=== PATIENT | male | born 1985 | race African-American/Black ===

== ENCOUNTER 2020-09-10 10:19 | Emergency (ER) | payer SELFPAY ==
[~2020-09-10] VITALS: Ht 175.3 cm; Wt 86.1 kg
[~2020-09-10 10:19] MED LIST: CLIN300C3 PO; DEXA4TAB PO; IBUP800T19 PO; ONDA4TAB10 PO; PANT40TA3 PO; RANI-369 PO
[2020-09-10] MEDS ORDERED: IV NORMAL SALINE 1,000ML 1,000 ML IV ONE (11:00)
[2020-09-10] MEDS ORDERED: KETOROLAC 30 MG/ML VIAL. IVP ONE (11:00)
--- NOTE | 2020-09-10 11:07 | RAD ---
EXAMINATION: Chest radiograph. VIEWS: Single view COMPARISON: None INDICATION: Chest pain FINDINGS: Normal cardiomediastinal silhouette. No focal consolidation. Bilateral perihilar peribronchovascular cuffing. No pleural effusion or pneumothorax. No acute osseous process. IMPRESSION: Bilateral perihilar peribronchovascular cuffing, may reflect infectious/reactive small airways diseas e. No focal consolidation. Electronically signed by: Sammie Lee MD (09/10/2020 11:05 AM) [id number]
[2020-09-10 11:12] LABS: BASO # 0.1 x10^3/uL (0.0-0.2); BASO % 1 % (0-3); EOS # 0.1 x10^3/uL (0.0-0.7); EOS % 1 % (0-3); LYMPH # 1.4 x10^3/uL (1.0-4.8); LYMPH % 13 % (24-48); MEAN CORPUSCULAR HEMOGLOBIN 31 pg (25-35); MEAN CORPUSCULAR HGB CONC 33 g/dL (31-37); MEAN CORPUSCULAR VOLUME 94 fL (79-100); MONO # 0.9 x10^3/uL (0.0-1.1); MONO % 8 % (0-9); NEUT # 8.8 x10^3uL (1.8-7.7); NEUT % 78 % (31-73); PLATELET COUNT 179 x10^3/uL (140-400); RED BLOOD COUNT 4.17 x10^6/uL (4.30-5.70); RED CELL DISTRIBUTION WIDTH 14.3 % (11.5-14.5); WHITE BLOOD COUNT 11.3 x10^3/uL (4.0-11.0)
--- NOTE | 2020-09-10 11:12 | PHYS DOC ---
Past History Past Medical History: GERD, Hypertension, Other Past Surgical History: Cholecystectomy, Tonsillectomy Smoking: Non-smoker Alcohol Use: None Drug Use: Marijuana General Adult EDM: Chief Complaint: CHEST WALL PAIN HPI: HPI: 35-year-old male presents with chest pain. Patient states he was lifting a heavy object yesterday from his abdominal level up over his shoulder. He felt a popping sensation in the right trellis region. He had some pain with it. The patient has more pain today so he thought he should get evaluated. He still has full range of motion of his right arm and shoulder. The pain is worse with deep breathing and especially coughing or sneezing. He denies shortness of breath or diaphoresis. No fever or chills. Review of Systems: Review of Systems: Constitutional: Denies fever or chills Eyes: Denies change in visual acuity HENT: Denies nasal congestion or sore throat Respiratory: Denies cough or shortness of breath Cardiovascular: Denies chest pain or edema GI: Denies abdominal pain, nausea, vomiting, bloody stools or diarrhea : Denies dysuria Musculoskeletal: Right chest wall pain Integument: Denies rash Neurologic: Denies headache, focal weakness or sensory changes Endocrine: Denies polyuria or polydipsia Lymphatic: Denies swollen glands Psychiatric: Denies depression or anxiety Current Medications: Current Meds: Current Medications Medications (Trade) Dose Ordered Sig/Lars Start Time Stop Time Status Last Admin Dose Admin Ketorolac Tromethamine (Toradol 30mg Vial) 30 mg 1X ONCE 09/10/20 11:00 09/10/20 11:01 DC 09/10/20 11:00 30 MG Sodium Chloride 1,000 ml @ 1,000 mls/hr 1X ONCE 09/10/20 11:00 09/10/20 11:59 09/10/20 11:00 1,000 MLS/HR Allergies: Allergies: Allergies Coded Allergies Type Severity Reaction Last Updated Verified No Known Drug Allergies 05/27/13 No Physical Exam: PE: Constitutional: Well developed, well nourished, no acute distress, non-toxic appearance. [] HENT: Normocephalic, atraumatic, bilateral external ears normal, oropharynx moist, no oral exudates, nose normal. [] Eyes: PERRLA, EOMI, conjunctiva normal, no discharge. [] Neck: Normal range of motion, no tenderness, supple, no stridor. [] Cardiovascular:Heart rate regular rhythm, no murmur [] Lungs & Thorax: Bilateral breath sounds clear to auscultation. Tenderness to palpation of the right pectoralis region. No obvious muscle deformity. [] Abdomen: Bowel sounds normal, soft, no tenderness, no masses, no pulsatile masses. [] Skin: Warm, dry, no erythema, no rash. [] Back: No tenderness, no CVA tenderness. [] Extremities: No tenderness, no cyanosis, no clubbing, ROM intact, no edema. [] Neurologic: Alert and oriented X 3, normal motor function, normal sensory function, no focal deficits noted. [] Psychologic: Affect normal, judgement normal, mood normal. [] Current Patient Data: Vital Signs: Vital Signs Date Time Temp Pulse Resp B/P (MAP) Pulse Ox O2 Delivery O2 Flow Rate FiO2 09/10/20 10:30 97.8 59 16 128/66 (86) 98 Room Air EKG: EKG: Sinus rhythm, rate 61, normal axis, no ST elevation or depression. [] Radiology/Procedures: Radiology/Procedures: [] Impressions: EXAMINATION: Chest radiograph. VIEWS: Single view COMPARISON: None INDICATION: Chest pain FINDINGS: Normal cardiomediastinal silhouette. No focal consolidation. Bilateral perihilar peribronchovascular cuffing. No pleural effusion or pneumothorax. No acute osseous process. IMPRESSION: Bilateral perihilar peribronchovascular cuffing, may reflect infectious/reactive small airways disease. No focal consolidation. Electronically signed by: Sondra Lee MD (09/10/2020 11:05 AM) [id number] DICTATED AND SIGNED BY: SONDRA LEE MD DATE: 09/10/20 1104 CC: CHASITY KAPLAN DO; PCP,NO ~MTH0 0 Heart Score: C/O Chest Pain: Yes HEART Score for Chest Pain: HEART Score for Chest Pain Response (Comments) Value History Slighlty/Non-Suspicious 0 ECG Normal 0 Age < 45 0 Risk Factors No Risk Factors 0 Troponin < Normal Limit 0 Total 0 Risk Factors: Risk Factors: DM, Current or recent (<one month) smoker, HTN, HLP, family history of CAD, obesity. Risk Scores: Score 0 - 3: 2.5% MACE over next 6 weeks - Discharge Home Score 4 - 6: 20.3% MACE over next 6 weeks - Admit for Clinical Observation Score 7 - 10: 72.7% MACE over next 6 weeks - Early Invasive Strategies Course & Med Decision Making: Course & Med Decision Making Pertinent Labs and Imaging studies reviewed. (See chart for details) The patient's labs are unremarkable. His EKG is unremarkable. His chest x-ray shows some nonspecific findings. See official read for details. I believe this is just a musculoskeletal strain of the right pectoral region. It should improve on its own. The patient can continue to take ibuprofen as needed. He is stable for discharge at this time. [] Dragon Disclaimer: Dragon Disclaimer: This electronic medical record was generated, in whole or in part, using a voice recognition dictation system. Departure Departure: Impression: Primary Impression: Chest wall pain Disposition: HOME / SELF CARE / HOMELESS Condition: STABLE Referrals: PCP,KRISTIE (PCP) Patient Instructions: Chest Wall Pain, [id number] CHASITY KAPLAN DO September 10, 2020 11:12
[2020-09-10 11:31] LABS: CALCIUM 8.6 mg/dL (8.5-10.1); CREATININE 1.1 mg/dL (0.7-1.3); GFR 92.2; POTASSIUM 3.7 mmol/L (3.5-5.1)
[2020-09-10 11:37] LABS: ALBUMIN 3.2 g/dL (3.4-5.0); ALBUMIN/GLOBULIN RATIO 1.1 (1.0-1.7); TOTAL BILIRUBIN 0.3 mg/dL (0.2-1.0); TOTAL PROTEIN 6.1 g/dL (6.4-8.2)
[2020-09-10 11:51] VITALS: BP 134/76
--- NOTE | 2020-09-10 19:51 | EKG ---
[address] [address] Test Date: 2020-09-10 Test Time: 10:42:42 Pat Name: SONU HURT Department: Room: Gender: M Pharmaceutical Salesperson: TOSHA : 1985 Requested By: CHASITY KAPLAN Order Number: [id number] Reading MD: Measurements Intervals Zirconia Rate: 61 P: 48 WA: 166 QRS: 69 QRSD: 90 T: 78 QT: 394 QTc: 402 Interpretive Statements SINUS RHYTHM NORMAL ECG RI6.02 No previous ECG available for comparison
== END 2020-09-10 12:18 | disposition home or self-care (01) ==
LOC: ER 10:19
DX: R07.89 Other chest pain (principal); I10 Essential (primary) hypertension; K21.9 Gastro-esophageal reflux disease without esophagitis; F12.10 Cannabis abuse, uncomplicated; Z90.49 Acquired absence of other specified parts of digestive tract
CPT/HCPCS: 36415; 71045; 80053; 84484; 85025; 93005; 96361; 96374; 99285; J1885; J7030

== ENCOUNTER 2020-11-19 18:09 | Emergency (ER) | payer SELFPAY ==
[~2020-11-19] VITALS: Ht 175.3 cm; Wt 86.1 kg
--- NOTE | 2020-11-19 18:42 | PHYS DOC ---
Past History Past Medical History: GERD, Hypertension, Other Additional Past Medical Histor: POLY CYSTIC KIDNEY DISEASE (AGGIE MCCORMICK APRN) Past Surgical History: Cholecystectomy, Tonsillectomy (AGGIE MCCORMICK APRN) Smoking: Non-smoker Alcohol Use: None Drug Use: Marijuana (AGGIE MCCORMICK APRN) General Adult EDM: Chief Complaint: BLOOD IN URINE HPI: HPI: Patient is a 35-year-old male being seen in the ER for hematuria since last night. Patient has a history of polycystic kidney disease. 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 Patient denies dysuria, abdominal pain, fevers, nausea, vomiting, lightheadedness, flank pain. Patient reports that he does have some hematuria with his polycystic kidney disease but never this much. (AGGIE MCCORMICK APRN) Review of Systems: Review of Systems: 14 body systems of the review of systems have been reviewed. See HPI for pertinent positive and negative responses, otherwise all other systems are neg ative, nonpertinent or noncontributory (AGGIE MCCORMICK APRN) Allergies: Allergies: Allergies Coded Allergies Type Severity Reaction Last Updated Verified No Known Drug Allergies 11/19/20 No (AGGIE MCCORMICK APRN) Physical Exam: PE: Constitutional: Well developed, well nourished, no acute distress, non-toxic appearance. [] HENT: Normocephalic, atraumatic Eyes: PERRL, conjunctiva normal, no discharge. [] Neck: Normal range of motion, no stridor Cardiovascular:Heart rate regular rhythm, no murmur [] Lungs & Thorax: Bilateral breath sounds clear to auscultation [] Abdomen: Bowel sounds normal, soft, no tenderness, no masses, no pulsatile masses. [] Skin: Warm, dry, no erythema, no rash. [] Back: No tenderness, no CVA tenderness. [] Extremities: No tenderness, no cyanosis, no clubbing, ROM intact, no edema. [] Neurologic: Alert and oriented X 3, normal motor function, normal sensory function, no focal deficits noted. [] Psychologic: Affect normal, judgement normal, mood normal. [] (AGGIE MCCORMICK APRN) Current Patient Data: Labs: Laboratory Tests Test 11/19/20 18:34 11/19/20 19:25 Urine Collection Type Unknown Urine Color Red Urine Clarity Bloody Urine pH Urine Specific [place] Urine Protein Urine Glucose (UA) mg/dL Urine Ketones (Stick) mg/dL Urine Blood Urine Nitrite Urine Bilirubin Urine Urobilinogen Dipstick mg/dL Urine Leukocyte Esterase Urine RBC >40 /HPF Urine WBC Rare /HPF Urine Squamous Epithelial Cells Occ /LPF Urine Bacteria 0 /HPF White Blood Count 11.0 x10^3/uL Red Blood Count 4.39 x10^6/uL Hemoglobin 14.0 g/dL Hematocrit 40.7 % Mean Corpuscular Volume 93 fL Mean Corpuscular Hemoglobin 32 pg Mean Corpuscular Hemoglobin Concent 34 g/dL Red Cell Distribution Width 13.7 % Platelet Count 189 x10^3/uL Neutrophils (%) (Auto) 59 % Lymphocytes (%) (Auto) 28 % Monocytes (%) (Auto) 8 % Eosinophils (%) (Auto) 4 % Basophils (%) (Auto) 1 % Neutrophils # (Auto) 6.5 x10^3uL Lymphocytes # (Auto) 3.1 x10^3/uL Monocytes # (Auto) 0.9 x10^3/uL Eosinophils # (Auto) 0.4 x10^3/uL Basophils # (Auto) 0.1 x10^3/uL Sodium Level 143 mmol/L Potassium Level 3.2 mmol/L Chloride Level 108 mmol/L Carbon Dioxide Level 28 mmol/L Anion Gap 7 Blood Urea Nitrogen 15 mg/dL Creatinine 0.9 mg/dL Estimated GFR (Cockcroft-Gault) 116.2 Glucose Level 71 mg/dL Calcium Level 8.6 mg/dL Current Medications Medications (Trade) Dose Ordered Sig/Lars Route PRN Reason Start Time Stop Time Status Last Admin Dose Admin Potassium Chloride (Klor-Con) 40 meq 1X ONCE PO 11/19/20 20:00 11/19/20 20:01 UNV Vital Signs: Vital Signs Date Time Temp Pulse Resp B/P (MAP) Pulse Ox O2 Delivery O2 Flow Rate FiO2 11/19/20 18:29 97.9 71 18 118/79 99 Room Air (AGGIE MCCORMICK APRN) EKG: EKG: [] (AGGIE MCCORMICK APRN) Radiology/Procedures: Radiology/Procedures: [] (AGGIE MCCORMICK APRN) Heart Score: C/O Chest Pain: No Risk Factors: Risk Factors: DM, Current or recent (<one month) smoker, HTN, HLP, family history of CAD, obesity. Risk Scores: Score 0 - 3: 2.5% MACE over next 6 weeks - Discharge Home Score 4 - 6: 20.3% MACE over next 6 weeks - Admit for Clinical Observation Score 7 - 10: 72.7% MACE over next 6 weeks - Early Invasive Strategies (AGGIE MCCORMICK APRN) Course & Med Decision Making: Course & Med Decision Making Pertinent Labs and Imaging studies reviewed. (See chart for details) Patient is a 35-year-old male being seen in the ER for hematuria. Patient has a history of polycystic kidney disease. Patient has no other complaints. Patient's physical exam is reassuring. His vital signs are stable his CBC is unremarkable. His BUN and creatinine are unremarkable. Patient's potassium is low and that was treated with potassium in the ER. Patient advised to increase fluids and follow-up with the urologist. Patient reports that he does not have a neurologist in patient is given the number for [facility] urology. I discussed with patient all findings and diagnostic testing as well as the need to follow-up with PCP for further evaluation and treatment or return to the ER if any new or worsening symptoms. Strict return precautions were also discussed at length. Patient voiced understanding and agreement with the plan. Patient is hemodynamically stable at the time of disposition. (AGGIE MCCORMICK APRN) Course & Med Decision Making Did not see or evaluate patient. Agree with SALES DONOR RECRUITMENT REPRESENTATIVE's work-up and disposition per note. (FARIDA PEÑALOZA MD) Dragon Disclaimer: Dragon Disclaimer: This electronic medical record was generated, in whole or in part, using a voice recognition dictation system. (AGGIE MCCORMICK APRN) Departure Departure: Impression: Primary Impression: Polycystic kidney disease Additional Impression: Hematuria Qualified Codes: R31.21 - Asymptomatic microscopic hematuria Disposition: HOME / SELF CARE / HOMELESS Condition: GOOD Referrals: PCP,KRISTIE (PCP) Patient Instructions: Hematuria, Adult, Polycystic Kidney Disease, Adult Additional Instructions: You were seen in the ER today for hematuria. Your vital signs are stable. Your lab work is unremarkable. You did have a low potassium level and this was treated in the ER. Please ensure that you are eating potassium rich foods at home including green leafy vegetables. Please follow-up with [facility] urology the number is [phone]. Please return to the ER if you develop pain with urination, abdominal pain, fevers, nausea, vomiting, severe back pain, or worsening of your hematuria. EMERGENCY DEPARTMENT GENERAL DISCHARGE INSTRUCTIONS Thank you for coming to [facility] (ED) today and trusting us with you care. We trust that you had a positivie experience in our Emergency Department. If you wish to speak to the department management, you may call the director at [phone]. YOUR FOLLOW UP INSTRUCTIONS ARE FOLLOWS: 1. Do you have a private Doctor? If you do not have a private doctor, please ask for a resource list of physicians or clinics that may be able to assist you with follow up care. 2. The Emergency Physician has interpreted your x-rays. The X-Ray specialist will also review them. If there is a change in the findings, you will be notified in 48 hours when at all possible. 3. A lab test or culture has been done, your results will be reviewed and you will be notified if you need a change in treatment. ADDITIONAL INSTRUCTIONS AND INFORMATION: 1. Your care today has been supervised by a physician who is specially trained in emergency care. Many problems require more than one evaluation for a complete diagnosis and treatment. We recommend that you schedule your follow up appointment as recommended to ensure complete treatment of you illness or injury. If you are unable to obtain follow up care and continue to have a problem, or if your condition worsens, we recommend that you return to the ED. 2. We are not able to safely determine your condition over the phone nor are we able to give sound medical advice over the phone. For these safety reasons, if you call for medical advice we will ask you to come to the ED for further evaluation. 3. If you have any questions regarding these discharge instructions please call the ED at [phone]. SAFETY INFORMATION: In the interest of safety, wellness, and injury prevention; we encourage you to wear your sealbelt, if you smoke; quite smoking, and we encourage family to use a protective helmet for bicycling and other sporting events that present an increased risk for head injury. IF YOUR SYMPTOMS WORSEN OR NEW SYMPTOMS DEVELOP, OR YOU HAVE CONCERNS ABOUT YOUR CONDITION; OR IF YOUR CONDITION WORSENS WHILE YOU ARE WAITING FOR YOUR FOLLOW UP APPOINTMENT; EITHER CONTACT YOUR PRIMARY CARE DOCTOR, THE PHYSICIAN WHOSE NAME AND NUMBER YOU WERE GIVEN, OR RETURN TO THE ED IMMEDIATELY. AGGIE MCCORMICK APRN Nov 19, 2020 18:42 FARIDA PEÑALOZA MD Nov 19, 2020 20:17
[2020-11-19 19:28] LABS: CLARITY,URINE BLOODY; COLOR,URINE RED
[2020-11-19 19:29] LABS: BACTERIA,URINE 0 /HPF (0-FEW); RBC,URINE >40 /HPF (0-2); SQUAMOUS EPITHELIAL CELL,UR OCC /LPF; WBC,URINE RARE /HPF (0-4)
[2020-11-19 19:41] LABS: BASO # 0.1 x10^3/uL (0.0-0.2); BASO % 1 % (0-3); EOS # 0.4 x10^3/uL (0.0-0.7); EOS % 4 % (0-3); HEMATOCRIT 40.7 % (39.0-53.0); LYMPH # 3.1 x10^3/uL (1.0-4.8); LYMPH % 28 % (24-48); MEAN CORPUSCULAR HEMOGLOBIN 32 pg (25-35); MEAN CORPUSCULAR HGB CONC 34 g/dL (31-37); MEAN CORPUSCULAR VOLUME 93 fL (79-100); MONO # 0.9 x10^3/uL (0.0-1.1); MONO % 8 % (0-9); NEUT # 6.5 x10^3uL (1.8-7.7); NEUT % 59 % (31-73); PLATELET COUNT 189 x10^3/uL (140-400); RED BLOOD COUNT 4.39 x10^6/uL (4.30-5.70); RED CELL DISTRIBUTION WIDTH 13.7 % (11.5-14.5)
[2020-11-19 19:55] LABS: CALCIUM 8.6 mg/dL (8.5-10.1); CREATININE 0.9 mg/dL (0.7-1.3); GFR 116.2; POTASSIUM 3.2 mmol/L (3.5-5.1)
[2020-11-19] MEDS ORDERED: POTASSIUM CHLORIDE 20 MEQ TABLET.ER. PO ONE (20:00)
[2020-11-19 20:21] VITALS: BP 139/81
== END 2020-11-19 20:27 | disposition home or self-care (01) ==
LOC: ER 18:09
DX: Q61.3 Polycystic kidney, unspecified (principal); R31.21 Asymptomatic microscopic hematuria; K21.9 Gastro-esophageal reflux disease without esophagitis; I10 Essential (primary) hypertension; Z90.49 Acquired absence of other specified parts of digestive tract
CPT/HCPCS: 36415; 80048; 81001; 85025; 99283